=== PATIENT | female | born 1975 | race Caucasian/White ===

== ENCOUNTER 2016-12-17 01:46 | Emergency (ER) | payer OTHER ==
[~2016-12-17] VITALS: Ht 162.6 cm; Wt 87.5 kg
[2016-12-17 02:05] LABS: BASOPHILS # (AUTO) 0.2 K/uL (0.00-0.22); EOSINOPHILS # (AUTO) 0.1 K/uL (0-0.4); EOSINOPHILS % (AUTO) 0.8 % (0.0-4.0); HEMATOCRIT 38.5 % (36-48); HEMOGLOBIN 12.6 g/dL (12.0-16.0); LYMPHOCYTES # (AUTO) 1.2 K/uL (2.5-16.5); LYMPHOCYTES % (AUTO) 11.9 % (20.5-51.1); MEAN CORPUSCULAR HEMOGLOBIN 23 pg (27-31); MEAN CORPUSCULAR HGB CONC 33 g/dL (33-37); MEAN CORPUSCULAR VOLUME 71 fL (80-94); MONOCYTES # (AUTO) 0.3 K/uL (0.8-1.0); MONOCYTES % (AUTO) 2.5 % (1.7-9.3); NEUTROPHILS # (AUTO) 8.7 K/uL (1.8-7.7); PLATELET COUNT (AUTO) 291 K/uL (140-450); RED BLOOD CELL COUNT(AUTO) 5.46 MIL/uL (4.20-5.40); RED CELL DISTRIBUTION WIDTH 18.3 % (11.6-13.7); WHITE BLOOD COUNT (AUTO) 10.5 K/uL (4.8-10.8)
--- NOTE | 2016-12-17 02:22 | NUR ---
PT RETURN FROM CT TO ER LOBBY
[2016-12-17 02:26] VITALS: BP 153/107
[2016-12-17 02:36] LABS: ALBUMIN 4.2 g/dL (3.4-5.0); ANION GAP 8.9 (8-16); CARBON DIOXIDE 27.8 mmol/L (21-32); CREATININE 0.9 mg/dL (0.6-1.3); NEUTROPHILS % (AUTO) 82.8 % (42.2-75.2); POTASSIUM 3.7 mmol/L (3.5-5.1); TOTAL BILIRUBIN 0.4 mg/dL (0.0-1.0)
--- NOTE | 2016-12-17 02:47 | NUR ---
PT TAKEN TO BED 7
--- NOTE | 2016-12-17 02:50 | NUR ---
PT BIB FAMILY C/O RLQ RADIATING TO RT FLANK PAIN SINCE LAST NIGHT. C/O N/V, DENIES FEVER DENIES DYSURIA. PT DENIES ANY TRAUMA/HX, SKIN IS INTACT, FLUSHED/WARM/DRY; AAOX4, PERRL, WITH EVEN AND STEADY GAIT; LUNGS CLEAR BL, BREATHING UNLABORED; HR EVEN AND REGULAR, BL PERIPHERAL PULSES PRESENT; BS ACTIVE X4, TENDERNESS TO PALPATION, PT DENIES ANY FEVER, CP, SOB, OR COUGH AT THIS TIME; PT STATES 10/10 PAIN AT THIS TIME; VSS; PATIENT POSITIONED FOR COMFORT; HOB ELEVATED; BEDRAILS UP X2; BED DOWN.
[2016-12-17] MEDS ORDERED: KETOROLAC 30 MG/ML VIAL IVP ONE (02:55)
[2016-12-17] MEDS ORDERED: NACL 0.9% 1,000 ML IV ONE (02:55)
[2016-12-17] MEDS ORDERED: MORPHINE SULFATE 4 MG/ML SYR IVP ONE (03:20)
--- NOTE | 2016-12-17 04:01 | NUR ---
Dr. Desai evaluating patient at bedside.
--- NOTE | 2016-12-17 04:05 | NUR ---
IV removed, catheter intact and site benign. Applied folded 4x4 gauze and tape to stop bleeding.
[2016-12-17 04:15] VITALS: BP 142/82
--- NOTE | 2016-12-17 04:15 | NUR ---
Patient discharged with v/s stable. Written and verbal after care instructions given and explained. Patient alert, oriented and verbalized understanding of instructions. Ambulatory with steady gait. All questions addressed prior to discharge. ID band removed. Patient advised to follow up with PMD. Rx of MOTRIN 600MG, NORCO 5MG-325MG & FLOMAX 0.4 MG given. Patient educated on indication of medication including possible reaction and side effects. Opportunity to ask questions provided and answered.
== END 2016-12-17 04:15 | disposition home or self-care (01) ==
LOC: MED 01:46
DX: N20.0 Calculus of kidney (principal); Z88.0 Allergy status to penicillin
CPT/HCPCS: 36415; 74176; 80053; 81002; 81025; 83690; 85025; 96361; 96374; 96375; 99285; J1885; J2270; J7030